=== PATIENT | female | born 1940 | race Asian ===

== ENCOUNTER 2017-05-22 09:07 | Inpatient (IN) | payer OTHER, MEDICAID ==
[2017-05-14 12:35] LABS: BILIRUBIN,URINE NEGATIVE (NEGATIVE); CLARITY/URINE CLEAR (CLEAR); COLOR,URINE YELLOW (YELLOW); GLUCOSE,URINE NEGATIVE (NEGATIVE); KETONES,URINE NEGATIVE (NEGATIVE); LEUKOCYTE ESTERASE ,URINE NEGATIVE (NEGATIVE); NITRITE, URINE NEGATIVE (NEGATIVE); PROTEIN URINE NEGATIVE (NEGATIVE); UROBILINOGEN,URINE 0.2 (0.2-1.0)
[2017-05-14 12:36] LABS: BASOPHILS % (AUTO) 0.9 % (0.0-2.0); EOSINOPHILS # (AUTO) 0.2 K/uL (0.0-0.4); EOSINOPHILS % (AUTO) 4.4 % (0.0-4.0); HEMATOCRIT 34.2 % (36-48); HEMOGLOBIN 11.1 g/dL (12.0-16.0); LYMPHOCYTES # (AUTO) 1.7 K/uL (1.0-5.5); LYMPHOCYTES % (AUTO) 31.4 % (20.5-51.5); MEAN CORPUSCULAR HEMOGLOBIN 27 pg (27-31); MEAN CORPUSCULAR HGB CONC 33 % (32-36); MEAN CORPUSCULAR VOLUME 84 fL (79.0-98.0); MONOCYTES # (AUTO) 0.4 K/uL (0.0-1.0); NEUTROPHILS # (AUTO) 3.2 K/uL (1.8-7.7); NEUTROPHILS % (AUTO) 55.3 % (40.0-70.0); PLATELET COUNT (AUTO) 258 K/uL (130-430); RED BLOOD CELL COUNT(AUTO) 4.07 MIL/uL (4.2-6.2); RED CELL DISTRIBUTION WIDTH 12.9 % (9.0-15.0); WHITE BLOOD COUNT (AUTO) 5.5 K/uL (4.8-10.8)
[2017-05-14 12:37] LABS: BLOOD, URINE TRACE (NEGATIVE)
[2017-05-14 12:43] LABS: BACTERIA,URINE MODERATE /HPF (None Seen); MUCUS,URINE None Seen /LPF (None Seen); RBC,URINE 0-3 /HPF (0-3)
[2017-05-14 12:51] LABS: ANION GAP 6 (5-15); CALCIUM 9.2 mg/dL (8.4-11.0); CHLORIDE 107 mmol/L (98-107); CREATININE 0.64 mg/dL (0.55-1.30); GLUCOSE 103 mg/dL (70-99); POTASSIUM 3.7 mmol/L (3.5-5.1); SODIUM SERUM 140 mmol/L (136-145); UREA NITROGEN, BLOOD 16 mg/dL (8-21)
[~2017-05-22] VITALS: Ht 144.8 cm; Wt 61.7 kg
[~2017-05-22 09:07] MED LIST: GLUXR500 PO; IRBE75TA29 PO; ROSU10TA PO
[2017-05-22] MEDS ORDERED: CEFAZOLIN SOD 1 GM in D5W 50 ML IV ONE (09:15)
[2017-05-22] MEDS ORDERED: VANCOMYCIN HCL 1,000 MG in NS 250 ML IV ONE (09:15)
[2017-05-22] MEDS ORDERED: TRANEXAMIC ACID 1,000 MG/10 ML VIAL IV ONE (09:30)
[2017-05-22] MEDS ORDERED: FERR140T PO (10:03)
[2017-05-22] MEDS ORDERED: IBUP-2101 (10:03)
[2017-05-22] MEDS ORDERED: GLU500 PO (10:03)
[2017-05-22] MEDS ORDERED: POLYMYXIN 500,000/BACIT.10,000 UNITS in NS IRR 1 L IR ONE (11:45)
[2017-05-22] MEDS ORDERED: HYDROmorphone 1 MG INJ. 1 MG/ML AMPUL ONE ×2 (15:05→22:03)
[2017-05-22] MEDS ORDERED: MEPERIDINE HCL/PF 25 MG/ML DISP.SYRIN ONE (15:19)
[2017-05-22 16:29] VITALS: BP_SYST 128
[2017-05-22] MEDS ORDERED: INSULIN REGULAR, HUMAN 100 UNITS/ML, 10 ML VIAL (novoLIN R) SUBCUT PRN (16:30)
[2017-05-22] MEDS: KETOROLAC TROMETHAMINE 15 MG VIAL IVP SCH (17:19)
[2017-05-22] MEDS: HYDROcodone/ACETAMIN 7.5-325 MG TAB PO PRN (18:51)
[2017-05-22 20:00] VITALS: BP_SYST 142
[2017-05-22] MEDS ORDERED: DEXTROSE 50% JECT 50 ML DISP.SYRIN IVP PRN ×2 (20:45)
[2017-05-22] MEDS ORDERED: HYDROmorphone 1 MG INJ. 1 MG/ML AMPUL IVP ONE (22:00)
[2017-05-22] MEDS: ONDANSETRON HCL 4 MG/2 ML VIAL IVP PRN (22:01)
[2017-05-22] MEDS: SIMVASTATIN 20 MG TABLET PO SCH (22:45)
[2017-05-22] MEDS: SENNOSIDES 8.6 MG TABLET PO SCH (22:45)
[2017-05-23] VITALS (7 sets, daily range): BP systolic 104–138
[2017-05-23] MEDS: KETOROLAC TROMETHAMINE 15 MG VIAL IVP SCH ×2 (06:17)
[2017-05-23] MEDS: D5/0.45 NS 1,000 ML IV SCH ×2 (06:18→16:17)
[2017-05-23 06:46] LABS: BASOPHILS % (AUTO) 0.1 % (0.0-2.0); EOSINOPHILS % (AUTO) 0.1 % (0.0-4.0); HEMATOCRIT 28.2 % (36-48); HEMOGLOBIN 9.4 g/dL (12.0-16.0); LYMPHOCYTES # (AUTO) 0.9 K/uL (1.0-5.5); LYMPHOCYTES % (AUTO) 10.2 % (20.5-51.5); MEAN CORPUSCULAR HEMOGLOBIN 28 pg (27-31); MEAN CORPUSCULAR HGB CONC 33 % (32-36); MEAN CORPUSCULAR VOLUME 83 fL (79.0-98.0); MONOCYTES # (AUTO) 0.8 K/uL (0.0-1.0); MONOCYTES % (AUTO) 8.8 % (1.7-9.3); NEUTROPHILS # (AUTO) 6.9 K/uL (1.8-7.7); NEUTROPHILS % (AUTO) 80.8 % (40.0-70.0); PLATELET COUNT (AUTO) 217 K/uL (130-430); RED BLOOD CELL COUNT(AUTO) 3.39 MIL/uL (4.2-6.2); RED CELL DISTRIBUTION WIDTH 13.6 % (9.0-15.0); WHITE BLOOD COUNT (AUTO) 8.6 K/uL (4.8-10.8)
[2017-05-23 07:06] LABS: ANION GAP 7 (5-15); CALCIUM 8.5 mg/dL (8.4-11.0); CHLORIDE 105 mmol/L (98-107); CREATININE 0.83 mg/dL (0.55-1.30); GLUCOSE 145 mg/dL (70-99); SODIUM SERUM 139 mmol/L (136-145); UREA NITROGEN, BLOOD 17 mg/dL (8-21)
[2017-05-23] MEDS: LOSARTAN POTASSIUM 25 MG TABLET PO SCH (08:51)
[2017-05-23] MEDS: ASCORBIC ACID 500 MG TABLET PO SCH ×2 (08:51→20:56)
[2017-05-23] MEDS: MULTIVITAMINS TAB 1 TABLET PO SCH (08:51)
[2017-05-23] MEDS ORDERED: ROSUVASTATIN CALCIUM 5 MG/TAB (CRESTOR) PO SCH (09:00)
[2017-05-23] MEDS: RIVAROXABAN 10 MG TABLET PO SCH (09:07)
[2017-05-23] MEDS: ONDANSETRON HCL 4 MG/2 ML VIAL IVP PRN (11:05)
[2017-05-23] MEDS: SENNOSIDES 8.6 MG TABLET PO SCH (20:56)
[2017-05-23] MEDS: DIPHENHYDRAMINE HCL 25 MG CAPSULE PO PRN (20:56)
[2017-05-23] MEDS: SIMVASTATIN 20 MG TABLET PO SCH (20:56)
[2017-05-24] MEDS: ACETAMINOPHEN 325 MG TABLET PO PRN ×2 (00:31→23:19)
[2017-05-24 03:02] LABS: BILIRUBIN,URINE NEGATIVE (NEGATIVE); BLOOD, URINE 2+ (NEGATIVE); COLOR,URINE YELLOW (YELLOW); GLUCOSE,URINE NEGATIVE (NEGATIVE); KETONES,URINE NEGATIVE (NEGATIVE); LEUKOCYTE ESTERASE ,URINE TRACE (NEGATIVE); NITRITE, URINE NEGATIVE (NEGATIVE); PROTEIN URINE 1+ (NEGATIVE); UROBILINOGEN,URINE 0.2 (0.2-1.0)
[2017-05-24 03:29] LABS: CLARITY/URINE HAZY (CLEAR)
[2017-05-24 03:31] LABS: BACTERIA,URINE FEW /HPF (None Seen); MUCUS,URINE None Seen /LPF (None Seen); RBC,URINE 80-100 /HPF (0-3)
[2017-05-24 03:33] VITALS: BP_SYST 119
[2017-05-24 07:17] LABS: BASOPHILS % (AUTO) 0.4 % (0.0-2.0); EOSINOPHILS # (AUTO) 0.2 K/uL (0.0-0.4); EOSINOPHILS % (AUTO) 1.8 % (0.0-4.0); HEMATOCRIT 26.3 % (36-48); HEMOGLOBIN 8.7 g/dL (12.0-16.0); LYMPHOCYTES # (AUTO) 1.9 K/uL (1.0-5.5); LYMPHOCYTES % (AUTO) 21.7 % (20.5-51.5); MEAN CORPUSCULAR HEMOGLOBIN 28 pg (27-31); MEAN CORPUSCULAR HGB CONC 33 % (32-36); MEAN CORPUSCULAR VOLUME 84 fL (79.0-98.0); MONOCYTES # (AUTO) 1.1 K/uL (0.0-1.0); MONOCYTES % (AUTO) 12.7 % (1.7-9.3); NEUTROPHILS # (AUTO) 5.7 K/uL (1.8-7.7); NEUTROPHILS % (AUTO) 63.4 % (40.0-70.0); PLATELET COUNT (AUTO) 206 K/uL (130-430); RED BLOOD CELL COUNT(AUTO) 3.12 MIL/uL (4.2-6.2); RED CELL DISTRIBUTION WIDTH 13.9 % (9.0-15.0); WHITE BLOOD COUNT (AUTO) 8.9 K/uL (4.8-10.8)
[2017-05-24 07:50] LABS: ANION GAP 6 (5-15); CALCIUM 8.1 mg/dL (8.4-11.0); CHLORIDE 103 mmol/L (98-107); GLUCOSE 124 mg/dL (70-99); POTASSIUM 3.3 mmol/L (3.5-5.1); SODIUM SERUM 136 mmol/L (136-145); UREA NITROGEN, BLOOD 15 mg/dL (8-21)
[2017-05-24 08:00] VITALS: BP_SYST 128
[2017-05-24] MEDS: RIVAROXABAN 10 MG TABLET PO SCH (09:38)
[2017-05-24] MEDS: ASCORBIC ACID 500 MG TABLET PO SCH ×2 (09:38→21:05)
[2017-05-24] MEDS: MULTIVITAMINS TAB 1 TABLET PO SCH (09:38)
[2017-05-24] MEDS: HYDROcodone/ACETAMIN 7.5-325 MG TAB PO PRN ×2 (09:39→16:12)
[2017-05-24] MEDS: LOSARTAN POTASSIUM 25 MG TABLET PO SCH (09:39)
[2017-05-24 12:24] VITALS: BP_SYST 149
[2017-05-24] MEDS: D5/0.45 NS 1,000 ML IV SCH (12:49)
[2017-05-24] MEDS ORDERED: POTASSIUM CHLORIDE 20 MEQ TAB.PRT.SR PO ONE (14:30)
[2017-05-24 16:10] VITALS: BP_SYST 130
[2017-05-24 20:30] VITALS: BP_SYST 133
[2017-05-24] MEDS: SENNOSIDES 8.6 MG TABLET PO SCH (21:05)
[2017-05-24] MEDS: SIMVASTATIN 20 MG TABLET PO SCH (21:05)
[2017-05-24 23:20] VITALS: BP_SYST 136
[2017-05-25 05:11] VITALS: BP_SYST 123
[2017-05-25 06:25] LABS: ANION GAP 6 (5-15); CALCIUM 8.6 mg/dL (8.4-11.0); CHLORIDE 106 mmol/L (98-107); CREATININE 0.77 mg/dL (0.55-1.30); GLUCOSE 114 mg/dL (70-99); SODIUM SERUM 139 mmol/L (136-145); UREA NITROGEN, BLOOD 9 mg/dL (8-21)
[2017-05-25 06:43] LABS: BASOPHILS % (AUTO) 0.4 % (0.0-2.0); EOSINOPHILS # (AUTO) 0.3 K/uL (0.0-0.4); EOSINOPHILS % (AUTO) 3.6 % (0.0-4.0); HEMATOCRIT 27.6 % (36-48); LYMPHOCYTES # (AUTO) 1.4 K/uL (1.0-5.5); MEAN CORPUSCULAR HEMOGLOBIN 27 pg (27-31); MEAN CORPUSCULAR HGB CONC 33 % (32-36); MEAN CORPUSCULAR VOLUME 84 fL (79.0-98.0); MONOCYTES # (AUTO) 0.8 K/uL (0.0-1.0); MONOCYTES % (AUTO) 9.9 % (1.7-9.3); NEUTROPHILS # (AUTO) 5.7 K/uL (1.8-7.7); NEUTROPHILS % (AUTO) 69.1 % (40.0-70.0); PLATELET COUNT (AUTO) 203 K/uL (130-430); RED BLOOD CELL COUNT(AUTO) 3.29 MIL/uL (4.2-6.2); WHITE BLOOD COUNT (AUTO) 8.2 K/uL (4.8-10.8)
[2017-05-25] MEDS ORDERED: HYDROcodone/ACETAMIN 10-325 MG TAB PO PRN (07:15)
[2017-05-25 08:01] VITALS: BP_SYST 131
[2017-05-25] MEDS: MULTIVITAMINS TAB 1 TABLET PO SCH (09:27)
[2017-05-25] MEDS: LOSARTAN POTASSIUM 25 MG TABLET PO SCH (09:27)
[2017-05-25] MEDS: HYDROcodone/ACETAMIN 7.5-325 MG TAB PO PRN ×2 (09:28→13:40)
[2017-05-25] MEDS: DIPHENHYDRAMINE HCL 25 MG CAPSULE PO PRN (09:28)
[2017-05-25] MEDS: ASCORBIC ACID 500 MG TABLET PO SCH (09:28)
[2017-05-25] MEDS: RIVAROXABAN 10 MG TABLET PO SCH (09:28)
[2017-05-25 12:54] VITALS: BP_SYST 137
[2017-05-25] MEDS ORDERED: HYDR-4100 PO (14:09)
[2017-05-25 14:15] VITALS: BP_SYST 137
[2017-05-25 16:21] VITALS: BP_SYST 138
== END 2017-05-25 18:05 | disposition home health service (06) | DRG 470 ==
LOC: SMU 09:07 → STU 05-23 07:58
PROVIDERS: ADMIT Orthopaedic Surgery; ATTEND Orthopaedic Surgery
PROC: 3E0T3CZ (ICD-10-PCS; 2017-05-22)
PROC: 0SRC0J9 Replacement of Right Knee Joint with Synthetic Substitute, Cemented, Open Approach (ICD-10-PCS; principal; 2017-05-22 12:00)
DX: M17.11 Unilateral primary osteoarthritis, right knee (principal); E11.40 Type 2 diabetes mellitus with diabetic neuropathy, unspecified; I10 Essential (primary) hypertension; E78.5 Hyperlipidemia, unspecified; R23.8 Other skin changes; K21.9 Gastro-esophageal reflux disease without esophagitis; Z91.048 Other nonmedicinal substance allergy status; Z96.652 Presence of left artificial knee joint; Z98.42 Cataract extraction status, left eye; Z98.41 Cataract extraction status, right eye; Z80.8 Family history of malignant neoplasm of other organs or systems
CPT/HCPCS: 36415; 71010; 71020-TC; 73560-TC; 80048; 81000-TC; 82962; 85025; 86886; 86900; 86901; 86920; 87040-TC; 87081; 87086; 88305; 88311; 97110-GP; 97116-GP; 97530-GP; C1713; C1776; J0690; J1170; J1815; J1885; J2175; J2405; J3370; J3490; J7050; J7060; J7120; Q0163